=== PATIENT | female | born 1970 | race Caucasian/White ===

== ENCOUNTER 2024-08-15 02:53 | Emergency (ER) | payer BC ==
[2024-08-15] MEDS ORDERED: ONDANSETRON 4 MG/2 ML VIAL ONE (03:20)
[2024-08-15] MEDS ORDERED: TAMSULOSIN 0.4 MG SR CAP ONE (03:21)
[2024-08-15] MEDS ORDERED: NA CHLORIDE 0.9% 1,000 ML ONE (03:22)
[2024-08-15] MEDS ORDERED: MORPHINE 4 MG/ML SYR ONE ×2 (03:22→07:23)
[2024-08-15 03:38] LABS: Specific Gravity 1.012 (1.005-1.030); Sqamous Epithelial <5 /HPF (None Seen); Urine Bacteria None Seen /HPF (<20); Urine Bilirubin NEGATIVE (Negative); Urine Blood 2+ (Negative); Urine Clarity Clear (Clear); Urine Color Light-Yellow (Yellow); Urine Culture Reflex Order NOT NEEDED; Urine Glucose NEGATIVE (Negative); Urine Ketones TRACE (Negative); Urine Microscopic Reflex YN ORDER UMIC; Urine Mucus Slight /HPF (None Seen); Urine Nitrite NEGATIVE (Negative); Urine Protein 1+ (Negative); Urine RBC 21-50 /HPF (None Seen); Urine Urobilinogen Normal (Normal); Urine WBC <5 /HPF (<5)
[2024-08-15 03:47] LABS: Albumin 4.1 g/dL (3.4-5.0); Albumin/Globulin Ratio 1.1 (1.1-1.8); Anion Gap 12.6 mEq/L (5.0-15.0); Bilirubin Total 0.2 mg/dL (0.2-1.0); Globulin 3.7 g/dL (2.3-3.5); Potassium 3.6 mEq/L (3.5-5.1); Protein, Total 7.8 g/dL (6.4-8.2)
[2024-08-15 04:09] LABS: Absolute Basophils 0.1 K/uL (0-0.5); Absolute Lymphocytes (CBC) 1.8 K/uL (0.7-4.9); Absolute Monocytes 0.5 K/uL (0.1-1.3); Absolute Neutrophil 10.6 K/uL (1.8-8.0); Basophils % 0.5 % (0-1.3); Eosinophils % 0.3 % (0-4.4); Hematocrit 47.8 % (36.0-45.0); Hemoglobin 15.9 g/dL (12.0-15.0); MCH 28.3 pg (27.0-35.0); MCHC 33.3 g/dL (32.0-36.0); MCV 84.8 fL (80-100); MPV 7.2 fL (7.6-11.3); Monocytes % 3.8 % (3.3-12.3); Neutrophils % 81.4 % (41.7-73.7); Platelets 354 thou/uL (152-406); RBC Red Blood Cell Count 5.63 M/uL (3.86-4.86); Red Cell Distribution Width 14.4 % (12.1-15.2)
--- NOTE | 2024-08-15 06:49 | RAD REPORT ---
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 In addition multiplanar reformats in the coronal and sagittal plane were obtained and reviewed. An individualized dose optimization technique, Automated Exposure Control, was utilized for the perfo rmed procedure. FINDINGS: The lack of IV contrast limits evaluation of solid organs, subtle lesions cannot be exclude d. Lung bases: The lung bases demonstrate to be clear. Liver: The liver demonstrates decreased attenuation corresponding to mild fatty infiltration. Gallbladder: Grossly the unopacified gallbladder demonstrate to be normal. Adrenal glands: Grossly the unopacified adrenal glands demonstrate to be normal. Pancreas: Grossly the unopacified pancreas demonstrate to be normal Spleen: The spleen demonstrate to be normal. Kidneys: There is increase size of the left kidney with left hydronephrosis and left hydroureter exte nding down to the level of the left roof of the acetabulum at approximately 4 cm from the left UVJ where there is a 4 x 8 mm calculus on axial image 74 and coronal image 77. No significant residual ca lculus is identified within the left kidney. The right kidney demonstrate no evidence for right nephrolithiasis and/or right hydronephrosis. GI: Grossly the unopacified stomach, small bowel and large bowel demonstrate to be within normal limi ts. No evidence for bowel dilatation and/or free air. The appendix was not visualized. The left-sided colon demonstrate to be decompressed with no gross abnormalities. : The urinary bladder demonstrate to be unremarkable. Genitalia: The uterus is absent. There are no adnexal masses. Abdominal aorta: The aorta demonstrate demonstrate to be within normal limits. Retroperitoneum: There is no retroperitoneal lymphadenopathy. There is no evidence for ascites and/or abnormal fluid collections. Bones: The bony structures demonstrate to be within normal limits. No evidence for compression deform ity and/or significant skeletal lesions. Soft tissues: The rest of the soft tissue and bony structures are within normal limits. IMPRESSION: 4 x 8 mm obstructing calculus at the level of the left roof of the left acetabulum at approximately 4 cm from the left UVJ with left hydronephrosis and left hydroureter. Mild fatty infiltration of the liver. Status post hysterectomy. Electronically signed by: Gera Miller MD 08/15/2024 04:09 AM [facility] Due to temporary technical issues with the PACS/CellScope reporting system, reports are being melanie d by the in-house radiologist without review as a courtesy to ensure prompt reporting the interpreting radiologist is fully responsible for the content of the report. Transcribed Date/Time: 08/15/2024 6:49 AM
[2024-08-15] MEDS ORDERED: MORPHINE 2 MG/ML SYR ONE (07:23)
[2024-08-15] MEDS ORDERED: CEFTRIAXONE 1000 MG/VIAL ONE (07:23)
[2024-08-15] MEDS ORDERED: METOCLOPRAMIDE 10 MG/2mL INJ ONE (07:23)
--- NOTE | 2024-08-15 07:28 | ER ---
Nurse's Notes [facility] Name: Celsa Calero Age: 54 yrs Sex: Female : 1970 Arrival Date: 08/15/2024 Time: 02:53 Bed 13 Private MD: Diagnosis: Left obstructing ureteral calculus, left hydronephrosis, intractable left pain associated with left kidney stone Presentation: 08/15 03:03 Chief complaint: Patient states: NAUSEA, VOMITING, PAIN ON THE BACK THAT RADIATES TO ha1 PELVIS. IT FEELS LIKE WHEN I WAS PASSING A KIDNEY STONE LAST YEAR. 03:03 Coronavirus screen: At this time, the client does not indicate any symptoms associated ha1 with coronavirus-19. Ebola Screen: No symptoms or risks identified at this time. Initial Sepsis Screen: Does the patient meet any 2 criteria? No. Patient's initial sepsis screen is negative. Does the patient have a suspected source of infection? No. Patient's initial sepsis screen is negative. Risk Assessment: Do you want to hurt yourself or someone else? Patient reports no desire to harm self or others. Onset of symptoms was August 15, 2024. 03:03 Method Of Arrival: Ambulatory ha1 03:03 Acuity: EDWIN 3 ha1 Triage Assessment: 03:03 General: Appears uncomfortable, Behavior is cooperative, anxious, crying. Pain: ha1 Complains of pain in left mid back Pain radiates to pelvis Pain currently is 10 out of 10 on a pain scale. Quality of pain is described as stabbing, throbbing. Neuro: Level of Consciousness is awake, alert, obeys commands, Oriented to person, place, time, situation, Gait is steady, Speech is normal. Cardiovascular: Capillary refill < 3 seconds Patient's skin is warm and dry. Respiratory: Airway is patent Respiratory effort is even, unlabored, Respiratory pattern is regular, symmetrical. GI: Abdomen is round non-distended, Reports nausea, vomiting. : Urine is clear, Reports POSSIBLE KIDNEY STONE. Derm: Skin is pink, warm \T\ dry. Musculoskeletal: Circulation, motion, and sensation intact. Historical: - Allergies: 03:03 No Known Allergies; ha1 - PMHx: 03:03 Kidney stone; ha1 - PSHx: 03:03 HYSTERECTOMY; ha1 - Immunization history:: Adult Immunizations up to date. - Infectious Disease History:: Denies. - Social history:: Smoking status: Patient denies any tobacco usage or history of. - Family history:: not pertinent. Screenin:54 [facility] ED Fall Risk Assessment (Adult) History of falling in the last 3 months, ha1 including since admission No falls in past 3 months (0 pts) Confusion or Disorientation No (0 pts) Intoxicated or Sedated No (0 pts) Impaired Gait No (0 pts) Mobility Assist Device Used No (0 pt) Altered Elimination No (0 pt) Score/Fall Risk Level 0 - 2 = Low Risk Oriented to surroundings, Maintained a safe environment, Educated pt \T\ family on fall prevention, incl call for assistance when getting out of bed, Hourly rounding (assess needs \T\ fall precautionary measures) done. Abuse screen: Denies threats or abuse. Denies injuries from another. Nutritional screening: No deficits noted. Tuberculosis screening: No symptoms or risk factors identified. Assessment: 03:03 Reassessment: SEE TRIAGE ASSESSMENT. ha1 04:00 Reassessment: Patient and/or family updated on plan of care and expected duration. Pain ha1 level reassessed. Patient is alert, oriented x 3, equal unlabored respirations, skin warm/dry/pink. PAIN 4/10 Patient states feeling better. Patient states symptoms have improved. 05:00 Reassessment: Patient and/or family updated on plan of care and expected duration. Pain ha1 level reassessed. Patient is alert, oriented x 3, equal unlabored respirations, skin warm/dry/pink. Patient states feeling better. Patient states symptoms have improved. 06:00 Reassessment: Patient and/or family updated on plan of care and expected duration. Pain ha1 level reassessed. Patient is alert, oriented x 3, equal unlabored respirations, skin warm/dry/pink. pain 4/10 Patient states feeling better. Patient states symptoms have improved. 07:36 General: Appears in no apparent distress. comfortable, well groomed, well developed, kc6 Behavior is calm, cooperative, appropriate for age. Pain: Complains of pain in pelvis and left mid back. Neuro: Level of Consciousness is awake, alert, obeys commands, Oriented to person, place, time, situation, Appropriate for age. Cardiovascular: Capillary refill < 3 seconds. Respiratory: Airway is patent Trachea midline Respiratory effort is even, unlabored, Respiratory pattern is regular, symmetrical. GI: Abdomen is flat, non-distended, Bowel sounds present X 4 quads. Abd is soft X 4 quads Reports lower abdominal pain, nausea, vomiting, Patient currently denies diarrhea. : Urine is cloudy, Reports pain with urination. EENT: No signs and/or symptoms were reported regarding the EENT system. Derm: No signs and/or symptoms reported regarding the dermatologic system. Skin is intact, is healthy with good turgor, Skin is pink, warm \T\ dry. Musculoskeletal: No signs and/or symptoms reported regarding the musculoskeletal system. Circulation, motion, and sensation intact. Capillary refill < 3 seconds, Range of motion: intact in all extremities. 08:36 Reassessment: Patient appears in no apparent distress at this time. No changes from [facility] previously documented assessment. Patient and/or family updated on plan of care and expected duration. Pain level reassessed. Patient is alert, oriented x 3, equal unlabored respirations, skin warm/dry/pink. 08:52 Reassessment: attempted to call report to [facility]. no answer at this time. [facility] transfer center states they will have them call me back. 10:18 Reassessment: Patient appears in no apparent distress at this time. No changes from [facility] previously documented assessment. Patient and/or family updated on plan of care and expected duration. Pain level reassessed. Patient is alert, oriented x 3, equal unlabored respirations, skin warm/dry/pink. Patient states feeling better. Patient states symptoms have improved. Vital Signs: 03:03 BP 186 / 107; Pulse 99; Resp 17 S; Temp 97.9; Pulse Ox 98% on R/A; Weight 102.06 kg; ha1 Height 5 ft. 5 in. ; 04:00 BP 167 / 93; Pulse 98; Resp 16 S; Pulse Ox 100% on R/A; ha1 05:00 BP 152 / 89; Pulse 99; Resp 17 S; Pulse Ox 95% on R/A; ha1 06:00 BP 139 / 79; Pulse 95; Resp 17 S; Pulse Ox 95% on R/A; ha1 07:36 BP 141 / 82; Pulse 92; Resp 18 S; Pulse Ox 95% on R/A; kc6 09:16 BP 140 / 96; Pulse 93; Resp 17 S; Pulse Ox 99% on R/A; kc6 10:18 BP 127 / 70; Pulse 90; Resp 18 S; Pulse Ox 97% on R/A; kc6 03:03 Body Mass Index 37.44 (102.06 kg, 165.1 cm) ha1 Elías Coma Score: 07:20 Eye Response: spontaneous(4). Motor Response: obeys commands(6). Verbal Response: sp4 oriented(5). Total: 15. ED Course: 03:00 Patient arrived in ED. jj6 03:03 Arm band placed on right wrist. ha1 03:03 Patient has correct armband on for positive identification. Bed in low position. Call ha1 light in reach. Side rails up X 1. 03:08 Messi Lopez MD is Attending Physician. sp4 03:18 Elyssa Estrada RN is Primary Nurse. ha1 03:24 Inserted saline lock: 20 gauge in right antecubital area, using aseptic technique. oe Blood collected. Flushed with 10 mL NS. 03:25 CBC with Diff Sent. oe 03:25 CMP Sent. oe 03:25 Lipase Sent. oe 03:25 Urinalysis w/ reflexes Sent. oe 03:47 Triage completed. ha1 03:51 CT Abd/Pelvis - Without Contrast In Process Unspecified. EDMS 06:46 Provided Education on: medication administration . ha1 07:00 Patient maintains SpO2 saturation greater than 95% on room air. kc6 07:00 Report received from Elyssa Estrada RN. kc6 07:00 Pulse ox on. NIBP on. Door closed. Noise minimized. Lights dimmed. Warm blanket given. kc6 Pillow given. 10:19 No provider procedures requiring assistance completed. Patient transferred, IV remains kc6 in place. Administered Medications: 03:30 Drug: NS 0.9% IV 1000 ml IV at 1 bolus Per protocol; to be given as a bolus over 60 ha1 minutes Route: IV; Rate: 1 bolus; Site: right antecubital; 06:46 Follow up: Response: No adverse reaction; IV Status: Completed infusion; IV Intake: ha1 1000ml 03:32 Drug: Ondansetron IVP 8 mg IVP once; over 2 minutes Route: IVP; Site: right antecubital;ha1 04:16 Follow up: Response: No adverse reaction; Marked relief of symptoms; Nausea is decreasedha1 03:34 Drug: morphine IVP or IV 8 mg IVP once over 4 mins Route: IVP; Infused Over: 4 mins; ha1 Site: right antecubital; 04:00 Follow up: Response: No adverse reaction; Pain is decreased; RASS: Alert and Calm (0) ha1 04:00 Drug: Flomax PO 0.8 mg PO once Route: PO; ha1 04:17 Follow up: Response: No adverse reaction ha1 07:35 Drug: Rocephin - Rocephin (cefTRIAXone) IVPB 1 grams IVPB once over 30 mins; (mix in 50 kc6 mL NS) Route: IVPB; Infused Over: 30 mins; Site: right antecubital; 08:00 Follow up: Response: No adverse reaction; IV Status: Completed infusion; IV Intake: [id number] 07:35 Drug: morphine IVP or IV 6 mg IVP once over 4 mins Route: IVP; Infused Over: 4 mins; kc6 Site: right antecubital; 08:00 Follow up: Response: No adverse reaction; Pain is decreased; RASS: Alert and Calm (0) kc6 07:35 Drug: metoCLOPramide IVP 10 mg IVP once; over 1 to 2 minutes Route: IVP; Site: right kc6 antecubital; 08:00 Follow up: Response: No adverse reaction; Nausea is decreased kc6 08:22 Drug: predniSONE PO 60 mg PO once Route: PO; kc6 08:48 Follow up: Response: No adverse reaction kc6 Medication: 03:55 VIS not applicable for this client. ha1 Intake: 06:46 IV: 1000ml; Total: 1000ml. ha1 08:00 IV: 50ml; Total: 1050ml. kc6 Outcome: 07:28 ER care complete, transfer ordered by MD. leung 10:19 Transferred by ground EMS to [facility], Transfer form completed. kc6 10:19 Condition: good 10:19 Instructed on the need for admit, 10:19 Patient left the ED. kc6 Signatures: Dispatcher [employer] EDMS Sven Forde Jennifer jj6 Elyssa Estrada RN RN ha1 Perla Ho RN RN kc6 Messi Lopez MD MD sp4 Corrections: (The following items were deleted from the chart) 06:49 05:52 Reassessment: Patient and/or family updated on plan of care and expected ha1 duration. Pain level reassessed. Patient is alert, oriented x 3, equal unlabored respirations, skin warm/dry/pink. ha1
--- NOTE | 2024-08-15 07:28 | EDPHYS ---
Physician Documentation [facility] Name: Celsa Calero Age: 54 yrs Sex: Female : 1970 Arrival Date: 08/15/2024 Time: 02:53 Bed 13 Private MD: ED Physician Messi Lopez HPI: 08/15 03:08 This 54 yrs old Female presents to ER via Unassigned with complaints of sp4 Possible Kidney Stone. 07:20 54-year-old female with past medical history of ureteral stones presents with acute sp4 onset left leg pain associated with multiple episodes of vomiting, . Historical: - Allergies: 03:03 No Known Allergies; ha1 - PMHx: 03:03 Kidney stone; ha1 - PSHx: 03:03 HYSTERECTOMY; ha1 - Immunization history:: Adult Immunizations up to date. - Infectious Disease History:: Denies. - Social history:: Smoking status: Patient denies any tobacco usage or history of. - Family history:: not pertinent. ROS: 07:20 Constitutional: Negative for fever, chills, and weight loss, positive for left flank sp4 pain positive for vomiting 07:20 All other systems are negative, Exam: 07:20 Constitutional: This is a well developed, well nourished patient who is awake, alert, sp4 in moderate distress secondary to pain Head/Face: Normocephalic, atraumatic. Eyes: Pupils equal round and reactive to light, extra-ocular motions intact. Lids and lashes normal. Conjunctiva and sclera are not injected. Cornea within normal limits. Periorbital areas with no swelling, redness, or edema. ENT: Nares patent. No nasal discharge, no septal abnormalities noted. Tympanic membranes are normal and external auditory canals are clear. Oropharynx with no redness, swelling, or masses, exudates, or evidence of obstruction, uvula midline. Mucous membranes moist. Neck: Trachea midline, no thyromegaly or masses palpated, and no cervical lymphadenopathy. Supple, full range of motion without nuchal rigidity, or vertebral point tenderness. Chest/axilla: Normal chest wall appearance and motion. Nontender with no deformity. No lesions are appreciated. Cardiovascular: Regular rate and rhythm with a normal S1 and S2. No gallops, murmurs, or rubs. Normal PMI, no JVD. No pulse deficits. Respiratory: Lungs have equal breath sounds bilaterally, clear to auscultation and percussion. No rales, rhonchi or wheezes noted. No increased work of breathing, no retractions or nasal flaring. Abdomen/GI: Soft, with normal bowel sounds. No distension or tympany. No guarding or rebound. No evidence of tenderness throughout. Back: No spinal tenderness. No costovertebral tenderness. Skin: Warm, dry with normal turgor. Normal color with no rashes, no lesions, and no evidence of cellulitis. MS/ Extremity: Pulses equal, no cyanosis. Neurovascular intact. Full, normal range of motion. Neuro: Awake and alert, GCS 15, oriented to person, place, time, and situation. Cranial nerves II-XII grossly intact. Motor strength 5/5 in all extremities. Sensory grossly intact. Psych: Awake, alert, with orientation to person, place and time. Behavior, mood, and affect are within normal limits Vital Signs: 03:03 BP 186 / 107; Pulse 99; Resp 17 S; Temp 97.9; Pulse Ox 98% on R/A; Weight 102.06 kg; ha1 Height 5 ft. 5 in. ; 04:00 BP 167 / 93; Pulse 98; Resp 16 S; Pulse Ox 100% on R/A; ha1 05:00 BP 152 / 89; Pulse 99; Resp 17 S; Pulse Ox 95% on R/A; ha1 06:00 BP 139 / 79; Pulse 95; Resp 17 S; Pulse Ox 95% on R/A; ha1 07:36 BP 141 / 82; Pulse 92; Resp 18 S; Pulse Ox 95% on R/A; kc6 09:16 BP 140 / 96; Pulse 93; Resp 17 S; Pulse Ox 99% on R/A; kc6 10:18 BP 127 / 70; Pulse 90; Resp 18 S; Pulse Ox 97% on R/A; kc6 03:03 Body Mass Index 37.44 (102.06 kg, 165.1 cm) 1 [place] Coma Score: 07:20 Eye Response: spontaneous(4). Motor Response: obeys commands(6). Verbal Response: sp4 oriented(5). Total: 15. MDM: 03:13 Medical Screening Exam initiated sp4 07:20 Differential diagnosis: diverticulitis, gastritis, non-specific abd pain, pancreatitis, sp4 Peptic Ulcer Disease. Data reviewed: vital signs, nurses notes, old medical records, lab test result(s), radiologic studies, CT scan. 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 In addition multiplanar reformats in the coronal and sagittal plane were obtained and reviewed. An individualized dose optimization technique, Automated Exposure Control, was utilized for the performed procedure. FINDINGS: The lack of IV contrast limits evaluation of solid organs, subtle lesions cannot be excluded. Lung bases: The lung bases demonstrate to be clear. Liver: The liver demonstrates decreased attenuation corresponding to mild fatty infiltration. Gallbladder: Grossly the unopacified gallbladder demonstrate to be normal. Adrenal glands: Grossly the unopacified adrenal glands demonstrate to be normal. Pancreas: Grossly the unopacified pancreas demonstrate to be normal Spleen: The spleen demonstrate to be normal. Kidneys: There is increase size of the left kidney with left hydronephrosis and left hydroureter extending down to the level of the left roof of the acetabulum at approximately 4 cm from the left UVJ where there is a 4 x 8 mm calculus on axial image 74 and coronal image 77. No significant residual calculus is identified within the left kidney. The right kidney demonstrate no evidence for right nephrolithiasis and/or right hydronephrosis. GI: Grossly the unopacified stomach, small bowel and large bowel demonstrate to be within normal limits. No evidence for bowel dilatation and/or free air. The appendix was not visualized. The left-sided colon demonstrate to be decompressed with no gross abnormalities. : The urinary bladder demonstrate to be unremarkable. Genitalia: The uterus is absent. There are no adnexal masses. Abdominal aorta: The aorta demonstrate demonstrate to be within normal limits. Retroperitoneum:There is no retroperitoneal lymphadenopathy. There is no evidence for ascites and/or abnormal fluid collections. Bones: The bony structures demonstrate to be within normal limits. No evidence for compression deformity and/or significant skeletal lesions. Soft tissues: The rest of the soft tissue and bony structures are within normal limits. IMPRESSION: 4 x 8 mm obstructing calculus at the level of the left roof of the left acetabulum at approximately 4 cm from the left UVJ with left hydronephrosis and left hydroureter. Mild fatty infiltration of the liver. Status post hysterectomy. Electronically signed by: Gera Miller MD 08/15/2024 04:09 AM. 07:26 Consideration of Admission/Observation Escalation of care including sp4 admission/observation considered. ED course: We have no urology at this time. Patient will be transferred to [facility] for urology attention.. 08:33 ED course: Patient discussed with urologist and excepting hospitalist at [address] Stable for transfer. 08/15 03:13 Order name: CBC with Diff; Complete Time: 06:59 [facility] 08/15 03:13 Order name: CMP; Complete Time: 06:59 [facility] 08/15 03:13 Order name: Lipase; Complete Time: 06:59 [facility] 08/15 03:13 Order name: Urinalysis w/ reflexes; Complete Time: 06:59 [facility] 08/15 03:13 Order name: CT Abd/Pelvis - Without Contrast; Complete Time: 06:59 [facility] 08/15 03:13 Order name: IV Saline Lock; Complete Time: 03:25 [facility] 08/15 03:13 Order name: Labs collected and sent; Complete Time: 03:25 sp4 Administered Medications: 03:30 Drug: NS 0.9% IV 1000 ml IV at 1 bolus Per protocol; to be given as a bolus over 60 ha1 minutes Route: IV; Rate: 1 bolus; Site: right antecubital; 06:46 Follow up: Response: No adverse reaction; IV Status: Completed infusion; IV Intake: ha1 1000ml 03:32 Drug: Ondansetron IVP 8 mg IVP once; over 2 minutes Route: IVP; Site: right antecubital;ha1 04:16 Follow up: Response: No adverse reaction; Marked relief of symptoms; Nausea is decreasedha1 03:34 Drug: morphine IVP or IV 8 mg IVP once over 4 mins Route: IVP; Infused Over: 4 mins; ha1 Site: right antecubital; 04:00 Follow up: Response: No adverse reaction; Pain is decreased; RASS: Alert and Calm (0) ha1 04:00 Drug: Flomax PO 0.8 mg PO once Route: PO; ha1 04:17 Follow up: Response: No adverse reaction ha1 07:35 Drug: Rocephin - Rocephin (cefTRIAXone) IVPB 1 grams IVPB once over 30 mins; (mix in 50 kc6 mL NS) Route: IVPB; Infused Over: 30 mins; Site: right antecubital; 08:00 Follow up: Response: No adverse reaction; IV Status: Completed infusion; IV Intake: [id number] 07:35 Drug: morphine IVP or IV 6 mg IVP once over 4 mins Route: IVP; Infused Over: 4 mins; kc6 Site: right antecubital; 08:00 Follow up: Response: No adverse reaction; Pain is decreased; RASS: Alert and Calm (0) kc6 07:35 Drug: metoCLOPramide IVP 10 mg IVP once; over 1 to 2 minutes Route: IVP; Site: right kc6 antecubital; 08:00 Follow up: Response: No adverse reaction; Nausea is decreased kc6 08:22 Drug: predniSONE PO 60 mg PO once Route: PO; kc6 08:48 Follow up: Response: No adverse reaction kc6 Disposition Summary: 08/15/24 07:28 Transfer Ordered Notes: Transfer Location: [facility] sp4 Reason: Higher level of care sp4 Condition: Stable sp4 Problem: new sp4 Symptoms: have improved sp4 Accepting Physician: [facility](08/15/24 10:19) kc6 Diagnosis - Left obstructing ureteral calculus, left hydronephrosis, intractable left pain sp4 associated with left kidney stone Forms: - Medication Reconciliation Form sp4 - SBAR form sp4 Signatures: Dispatcher [employer] EDMS Elyssa Estrada RN RN ha1 Perla Ho RN RN kc6 Messi Lopez MD MD sp4 Corrections: (The following items were deleted from the chart) 03:14 03:14 Abdomen Pelvis Wo Con+CT.RAD.BRZ ordered. EDMS EDMS 10:19 07:[address] [facility] Accepting Urologist and Hospital sp4 kc6
[2024-08-15] MEDS ORDERED: predniSONE 20 MG TAB ONE (08:10)
[2024-08-15 11:10] VITALS: TEMP 97.9
[2024-08-15 11:26] VITALS: BP 127/70; O2SAT 97
== END 2024-08-15 10:19 | disposition short-term general hospital (02) ==
LOC: ER 02:53
DX: N13.2 Hydronephrosis with renal and ureteral calculous obstruction (principal); Z87.442 Personal history of urinary calculi
CPT/HCPCS: 96365; 96361; 85025; 81001; 36415; 83690; 80053; 74176; 96375; 99285; J7512; J2765; J2270; J2405; J7030; J0696